=== PATIENT | female | born 1965 | race Caucasian/White ===

== ENCOUNTER 2017-03-12 19:01 | Emergency (ER) | payer OTHER ==
[2017-03-12 19:33] VITALS: BP 122/83; PULSE 82; TEMP 96.9; BMI 28.4
--- NOTE | 2017-03-12 19:49 | PDOC ---
History of Present Illness - General Chief Complaint: Pain Stated Complaint: PAIN, ACUTE Time Seen by Provider: 03/12/17 19:32 History Source: Patient Exam Limitations: No Limitations - History of Present Illness Initial Comments: 03/12/17 19:44 Patient is a 51F with a history of prior arm fracture here today complaining of pain in her right hand. She states that she punched a wall two days ago and has had pain since then. She also complains of pain in her upper arm and shoulder. She denies head trauma, trauma to any other area, chest pain, and shortness of breath. She states that she's always been able to move her fingers and feel beyond the injury. She states her pain is 9/10. Past History - Past Medical History Allergies/Adverse Reactions: Allergies Allergy/AdvReac Type Severity Reaction Status Date / Time No Known Drug Allergies Allergy Verified 03/12/17 19:31 Home Medications: Ambulatory Orders Omeprazole Magnesium [Prilosec (OTC)] 20 mg PO DAILY 03/09/14 Zolpidem Tartrate [Ambien] 10 mg PO HS PRN 03/09/14 Anemia: Yes (MANY YRS AGO) Asthma: No Cancer: Yes (UTERINE) Cardiac Disorders: No CVA: No COPD: No CHF: No Dementia: No Diabetes: No GI Disorders: Yes (GASTRITIS) Disorders: No HTN: Yes Hypercholesterolemia: Yes Liver Disease: No Seizures: No Thyroid Disease: No - Surgical History Abdominal Surgery: No Appendectomy: No Cardiac Surgery: No Cholecystectomy: No Lung Surgery: No Neurologic Surgery: No Orthopedic Surgery: No - Psycho/Social/Smoking Cessation Hx Anxiety: No Suicidal Ideation: No Smoking Status: Yes Smoking History: Current every day smoker Have you smoked in the past 12 months: Yes Number of Cigarettes Smoked Daily: 10 Information on smoking cessation initiated: No 'Breaking Loose' booklet given: 03/05/14 Hx Alcohol Use: No Drug/Substance Use Hx: No Substance Use Type: Alcohol Hx Substance Use Treatment: No Review of Systems - Review of Systems Comments:: 03/12/17 19:47 GENERAL/CONSTITUTIONAL: No fever or chills. No weakness. HEAD, EYES, EARS, NOSE AND THROAT: No change in vision. No ear pain or discharge. No sore throat. CARDIOVASCULAR: No chest pain or shortness of breath RESPIRATORY: No cough, wheezing, or hemoptysis. GASTROINTESTINAL: No nausea, vomiting, diarrhea or constipation. GENITOURINARY: No dysuria, frequency, or change in urination. MUSCULOSKELETAL: Positive for pain in right shoulder and hand SKIN: No rash NEUROLOGIC: No headache, loss of consciousness, or change in strength/sensation. ALLERGIC/IMMUNOLOGIC: No hives or skin allergy. *Physical Exam - Vital Signs Last Vital Signs Temp Pulse Resp BP Pulse Ox 96.9 F L 82 20 122/83 98 03/12/17 19:31 03/12/17 19:31 03/12/17 19:31 03/12/17 19:31 03/12/17 19:31 - Physical Exam Comments: 03/12/17 19:49 GENERAL: Awake, alert, and fully oriented, in no acute distress HEAD: No signs of trauma, normocephalic, atraumatic ENT: Auricles normal inspection, hearing grossly normal, nares patent, oropharynx clear without exudates. Moist mucosa NECK: Normal ROM, supple, no lymphadenopathy, JVD, or masses LUNGS: No distress, speaks full sentences, clear to auscultation bilaterally HEART: Regular rate and rhythm, normal S1 and S2, no murmurs, rubs or gallops, peripheral pulses normal and equal bilaterally. ABDOMEN: Soft, nontender, normoactive bowel sounds. No guarding, no rebound. No masses EXTREMITIES: Diffuse swelling in right hand. Tender to palpation diffusely in right hand. Neurovascularly intact distal to injury. Tender to palpation in right shoulder NEUROLOGICAL: Cranial nerves II through XII grossly intact. Normal speech, normal gait, no focal sensorimotor deficits SKIN: Warm, Dry, normal turgor, no rashes or lesions noted. Procedures - Splinting Splint Location: Right: Hand, Wrist Pre-Proc Neuro Vasc Exam: normal Hand-Made Type: orthoglass Splint Type: Yes: Volar Post-Proc Neuro Vasc Exam: normal, unchanged from pre-exam Frederic Bandage: 4" Sling: No Complications: No Post splint xray: No Good repositioning: Yes ED Treatment Course - RADIOLOGY Radiology Studies Ordered: Category Date Time Status ELBOW-RIGHT [RAD] Stat Radiology 03/12/17 19:40 Ordered HAND- RIGHT [RAD] Stat Radiology 03/12/17 19:40 Ordered SHOULDER-RIGHT [RAD] Stat Radiology 03/12/17 19:40 Ordered Medical Decision Making - Medical Decision Making 03/12/17 19:52 51F with history of prior arm injury here today complaining of right hand pain. Tender to palpation in shoulder as well. Vital signs stable. Given percocet for pain. Will evaluate right arm with x-ray of hand, elbow and shoulder. 03/12/17 21:29 X-rays show no signs of fracture, will splint and send to ortho follow up due to darrick swelling and pain in dominant hand. Placed wrist and forearm in volar splint. Neurovascularly intact after splinting. *DC/Admit/Observation/Transfer Diagnosis at time of Disposition: Acute wrist pain Qualifiers: Laterality: right Qualified Code(s): M25.531 - Pain in right wrist - Discharge Dispostion Disposition: HOME Condition at time of disposition: Good Admit: No - Patient Instructions Printed Discharge Instructions: How to Take Care of Your Splint Print Language: TAMAZIGHT - Attestations Physician Attestion: 03/12/17 21:32 I, Dr. Gilberto Caballero, attest that this document has been prepared under my direction and personally reviewed by me in its entirety. I further attest, that it accurately reflects all work, treatment, procedures and medical decision -making performed by me.
--- NOTE | 2017-03-12 21:03 | PDOC ---
Attending Attestation - Resident Resident Name: JordenGilberto power - ED Attending Attestation I have performed the following: I have examined & evaluated the patient, The case was reviewed & discussed with the resident, I agree w/resident's findings & plan, Exceptions are as noted - HPI HPI: 03/12/17 21:12 51-year-old female with no past medical history, [id number], presents with right hand pain. Patient was upset and punched a wall. Complain about right shoulder pain and right hand pain. The patient states that the pain is worse over the third and fourth metacarpal. Denies numbness or weakness. She is able to move all her digits. - Physicial Exam PE: 03/12/17 21:13 GENERAL: Awake, alert, and fully oriented, in no acute distress. HEAD: No signs of trauma EYES: PERRLA, EOMI, sclera anicteric, conjunctiva clear ENT: Auricles normal inspection, hearing grossly normal, nares patent, oropharynx clear without exudates. ABDOMEN: Soft, nontender, normoactive bowel sounds. No guarding, no rebound. No masses EXTREMITIES: RUE: 2+ radial pulse. Sensation intact throughout. Median/Radian/Ulnar nerve intact. Deltoid sensation intact. Ecchymosis and edema appreciated overlying the right hand. TTP 3rd and 4th metacarpal. Able to flex and extend all digits. NEUROLOGICAL: Cranial nerves II through XII grossly intact. Normal speech, normal gait SKIN: Warm, Dry, normal turgor, no rashes or lesions noted. - Medical Decision Making 03/12/17 21:14 Vital Signs Temp Pulse Resp BP Pulse Ox 96.9 F L 82 20 122/83 98 03/12/17 19:31 03/12/17 19:31 03/12/17 19:31 03/12/17 19:31 03/12/17 19:31 51 year old female presents with right hand pain. X-ray reviewed by me, no fractures appreciated. However, given the clinical pain, decision was made to place a volar splint. We'll give referral to orthopedics. The patient has uncontrollable pain, patient instructed to return back to the ER. Patient verbalized understanding agrees with plan.
== END 2017-03-12 21:40 | disposition home or self-care (01) ==
LOC: JER 19:01
PROC: 2W3CX1Z Immobilization of Right Lower Arm using Splint (ICD-10-PCS; principal; 2017-03-12)
DX: M25.531 Pain in right wrist (principal); W22.09XA Striking against other stationary object, initial encounter; Y93.89 Activity, other specified; Y92.89 Other specified places as the place of occurrence of the external cause; I10 Essential (primary) hypertension; E78.00 Pure hypercholesterolemia, unspecified; Z85.42 Personal history of malignant neoplasm of other parts of uterus
CPT/HCPCS: 29125; 73030-TC-RT; 73070-TC-RT; 73130-TC-RT; 99282-25

== ENCOUNTER 2018-09-07 12:38 | Day surgery (SDC) | payer OTHER ==
[2018-08-29 14:23] VITALS: BMI 30.7
[2018-09-07] MEDS ORDERED: MIDAZOLAM HCL 2 MG/2 ML SINGLE DOSE VIAL ONE (15:31)
[2018-09-07] MEDS ORDERED: ROPIVACAINE HCL 0.5% 30ML VIAL ONE (15:32)
[2018-09-07] MEDS ORDERED: BUPIVACAINE HCL/PF 0.5% (5MG/ML) 10 ML VIAL ONE (15:37)
[2018-09-07] MEDS ORDERED: LIDOCAINE HCL 2% (20ML MULTI-DOSE VIAL) NR ONE (15:37)
[2018-09-07] MEDS ORDERED: DEXAMETHASONE SOD PHOSPHATE 4 MG/1 ML VIAL ONE (15:41)
[2018-09-07] MEDS ORDERED: ONDANSETRON 4 MG/2 ML VIAL ONE (15:41)
[2018-09-07] MEDS ORDERED: PROPOFOL 20 ML ONE (15:43)
[2018-09-07] MEDS ORDERED: LIDOCAINE HCL/PF 2% SDV 5ML VIAL ONE (15:43)
[2018-09-07] MEDS ORDERED: ceFAZolin SODIUM 1 GM VIAL ONE (15:47)
[2018-09-07] MEDS ORDERED: oxyCODONE HCL 5 MG TABLET PO PRN (16:08)
[2018-09-07] MEDS ORDERED: ONDANSETRON 4 MG/2 ML VIAL IVPUSH PRN (16:08)
[2018-09-07] MEDS ORDERED: LACTATED RINGERS SOLUTION 1,000 ML IV SCH (16:15)
[2018-09-07] MEDS ORDERED: GUM MASTIC/STORAX/MSAL/ALCOHOL 1 DRP DROPSBTL MC ONE (16:50)
[2018-09-07] MEDS ORDERED: BUPIVACAINE HCL/PF 0.25% (2.5MG/ML) 10 ML VIAL IJ ONE (16:53)
[2018-09-07] MEDS ORDERED: KETOROLAC TROMETHAMINE 30 MG/1 ML VIAL IVPUSH ONE (17:00)
[2018-09-07] MEDS ORDERED: KETOROLAC TROMETHAMINE 30 MG/1 ML VIAL ONE (17:13)
[2018-09-07 17:43] VITALS: TEMP 98.1
[2018-09-07 18:57] VITALS: BP 122/70; PULSE 78
--- NOTE | 2018-09-08 16:41 | OP ---
DATE OF OPERATION: 09/07/2018 PREOPERATIVE DIAGNOSIS: 1. Right basal joint osteoarthritis. 2. Right carpal tunnel syndrome. POSTOPERATIVE DIAGNOSIS: 1. Right basal joint osteoarthritis. 2. Right carpal tunnel syndrome. OPERATIVE PROCEDURE: 1. Right basal joint arthroplasty. 2. Right hand tendon transfer. 3. Right carpal tunnel release. SURGEON: Celso Mendoza M.D. DATA ENTRY EMAIL PROCESSOR: Petros Deleon ANESTHESIA: General anesthesia. COMPLICATIONS: None. ESTIMATED BLOOD LOSS: Minimal. INDICATION FOR PROCEDURE: The patient is a 53-year-old female with the above findings, indicated for operative treatment. Risks, benefits, and alternatives were discussed with the patient at length. Proper informed consent was obtained. PROCEDURE: After proper identification of the patient and correct operative site, patient was brought to the operating room and placed supine on the operating table, all bony prominences well padded. General anesthesia was provided. Right upper extremity was prepped and draped in the usual sterile fashion. Well-padded tourniquet was placed with a sterile prep. A longitudinal incision made on the proximal aspect of the thumb. Incision was taken sharply through the skin with blunt and sharp dissection through subcutaneous tissues. Palmar fascia antebrachial fascia under direct visualization with loop magnification. This provided complete release of the median nerve at the wrist. The wound was repaired with 5-0 nylon suture. A 2nd incision was made over the basal joint as a Mackey approach. Incision was taken sharply through the skin with blunt dissection of subcutaneous tissues. Thenar muscle was elevated off the carpometacarpal joint and the carpometacarpal joint was divided longitudinally. Severe arthrosis and synovitis was noted. This was debrided. The trapezium was excised, and the arthroplasty space appeared healthy. Flexor carpi radialis tendon was intact. At this point, a suspensionplasty was performed by placing an Arthrex Swivelock anchor on the base of the 2nd metacarpal loaded with a Fibertape suture. This was then placed to the base of the thumb, metacarpal radial aspect with a 2nd Swivelock anchor. Full range of motion was achieved after this was placed, and the arthroplasty space was maintained. The capsule was then repaired, and the abductor pollicis longus tendon was transferred to the dorsal aspect of the capsule for augmentation. The wound was repaired in layers using 4-0 Vicryl and 4-0 Monocryl. Steri-Strips, sterile dressing was placed, local anesthetic was given. Splint was placed. The patient was reversed from anesthesia and brought to the recovery room in stable condition. Yossi Smith, the quality assurance assistant, was integral throughout the procedure. Procedure could not have been performed without a skilled operative quality assurance assistant. Holly SUNG/[id number]
== END 2018-09-07 21:00 | disposition home or self-care (01) ==
LOC: FASU 12:38
PROVIDERS: ATTEND Orthopaedic Surgery Hand Surgery
PROC: 0RQS0ZZ Repair Right Carpometacarpal Joint, Open Approach (ICD-10-PCS; 2018-09-07)
PROC: 01N50ZZ Release Median Nerve, Open Approach (ICD-10-PCS; principal; 2018-09-07 15:59)
PROC: 0LX70ZZ Transfer Right Hand Tendon, Open Approach (ICD-10-PCS; 2018-09-07 15:59)
DX: G56.01 Carpal tunnel syndrome, right upper limb (principal); M18.11 Unilateral primary osteoarthritis of first carpometacarpal joint, right hand
CPT/HCPCS: 94760

== ENCOUNTER 2020-03-05 18:22 | Emergency (ER) | payer OTHER ==
[2020-03-05 18:30] VITALS: BP 123/81; PULSE 82; TEMP 98.4; BMI 34.8
[2020-03-05] MEDS ORDERED: IBUPROFEN 600 MG TABLET (FP) PO ONE ×2 (18:30→18:36)
--- NOTE | 2020-03-05 18:30 | PDOC ---
Rapid Medical Evaluation Time Seen by Provider: 03/05/20 18:26 Medical Evaluation: Allergies Allergy/AdvReac Type Severity Reaction Status Date / Time No Known Drug Allergies Allergy Verified 01/24/18 14:28 03/05/20 18:27 I have performed a brief in-person evaluation of this patient. CC: left thumb pain s/p direct trauma PE: TTP base of left thumb. Swelling present to base of left thumb of dorsum of hand. Orders: xray, motrin Patient will proceed to ED for further evaluation. Discharge Disposition - Diagnosis Pain of left thumb - Referrals - Patient Instructions - Post Discharge Activity
--- NOTE | 2020-03-05 19:12 | PDOC ---
History of Present Illness - General Chief Complaint: Injury Stated Complaint: LT HAND INJURY Time Seen by Provider: 03/05/20 18:26 History Source: Patient - History of Present Illness Occurred: reports: this afternoon Upper Extremity Pain Location: left: wrist Past History - Medical History Allergies/Adverse Reactions: Allergies Allergy/AdvReac Type Severity Reaction Status Date / Time No Known Drug Allergies Allergy Verified 01/24/18 14:28 Home Medications: Ambulatory Orders Omeprazole Magnesium [Prilosec (OTC)] 20 mg PO DAILY 03/09/14 Atorvastatin Ca [Lipitor] 20 mg PO HS 08/29/18 Oxycodone HCl/Acetaminophen [Percocet 5-325 mg Tablet] 1 - 2 tab PO Q4H PRN 08/29/18 Anemia: Yes (MANY YRS AGO) Asthma: No Cancer: Yes (UTERINE) Cardiac Disorders: No CVA: No COPD: No CHF: No Dementia: No Diabetes: No GI Disorders: Yes (GASTRITIS) Disorders: No HTN: No Hypercholesterolemia: Yes Liver Disease: No Seizures: No Thyroid Disease: No - Surgical History Abdominal Surgery: No Appendectomy: No Cardiac Surgery: No Cholecystectomy: No Lung Surgery: No Neurologic Surgery: No Orthopedic Surgery: Yes (ORIF RIGHT ARM FRACTURE 2018) - Reproductive History Is Patient Now?: No - Immunization History Immunization Up to Date: Yes - Psycho-Social/Smoking History Smoking Status: Yes Smoking History: Never smoked Have you smoked in the past 12 months: No Number of Cigarettes Smoked Daily: 10 Information on smoking cessation initiated: No 'Breaking Loose' booklet given: 03/05/14 - Substance Abuse Hx (Audit-C & DAST Scrn) How often the patient has a drink containing alcohol: Never Score: In Men: 4 or > Positive; In Women: 3 or > Positive: 0 Screen Result (Pos requires Nsg. Audit-10AR): Negative In the last yr the pt used illegal drug/Rx for NonMed reason: No Score: Yes response is considered Positive: 0 Screen Result (Positive result requires Nsg. DAST-10): Negative Review of Systems - Review of Systems Musculoskeletal: Yes: Joint Pain. No: Joint Swelling *Physical Exam - Vital Signs Last Vital Signs Temp Pulse Resp BP Pulse Ox 98.4 F 82 16 123/81 97 03/05/20 18:28 03/05/20 18:28 03/05/20 18:28 03/05/20 18:28 03/05/20 18:28 - Physical Exam General Appearance: Yes: Appropriately Dressed. No: Apparent Distress HEENT: positive: Normal Voice Neck: positive: Supple Respiratory/Chest: negative: Respiratory Distress Extremity: positive: Swelling (minimal swelling w/ ttp toradial aspect of L wrist, no ttp to snuffbox, FROMI) Integumentary: positive: Dry, Warm Neurologic: positive: Fully Oriented, Alert, Normal Mood/Affect ED Treatment Course - Medications Given in the ED: ED Medications Discontinued Medications Generic Name Dose Route Start Last Admin Trade Name Freq PRN Reason Stop Dose Admin Ibuprofen 600 mg 03/05/20 18:30 03/05/20 18:37 Motrin - PO 03/05/20 18:31 600 mg ONCE ONE Administration Medical Decision Making - Medical Decision Making 03/05/20 19:22 54 yo F, here w/ pain to radial aspect of L wrist after striking hand/wrist against "iron pipe" while cleaning bathroom today see exam Wrist contusion XR neg for fx Dc w/ reassurance Discharge - Discharge Information Problems reviewed: Yes Clinical Impression/Diagnosis: Wrist contusion Qualifiers: Encounter type: initial encounter Laterality: left Qualified Code(s): S60.212A - Contusion of left wrist, initial encounter Condition: Stable - Follow up/Referral Referrals: Serafin Patton MD [Primary Care Provider] - - Patient Discharge Instructions Patient Printed Discharge Instructions: Contusion Print Language: RWANDAN - Post Discharge Activity
== END 2020-03-05 19:24 | disposition home or self-care (01) ==
LOC: JERFT 18:22
DX: S60.212A Contusion of left wrist, initial encounter (principal)
CPT/HCPCS: 73130-TC-LT-FY; 99283-25